=== PATIENT | male | born 1980 | race Caucasian/White ===

== ENCOUNTER → 2021-07-15 | Outpatient (CLI) | payer OTHER ==
[2021-07-15 11:56] LABS: URINE WBC 0 /hpf (0-3)
[2021-07-15 12:01] LABS: BASO # 0.04 K/mm3 (0.02-0.10); EOS # 0.05 K/mm3 (0.04-0.40); EOS % 0.8 % (0.0-4.0); HEMATOCRIT 49.1 % (42.0-52.0); HEMOGLOBIN 16.7 g/dL (13.5-18.0); LYMPH# 1.71 K/mm3 (1.50-4.00); MEAN CELL VOLUME 90 fl (78-100); MEAN CORPUSCULAR HEMOGLOBIN 31 pg (27-31); MEAN CORPUSCULAR HGB CONC 34 g/dL (33-37); MEAN PLATELET VOLUME 9.7 fl (7.4-10.4); MONO # 0.75 K/mm3 (0.20-0.80); NEU # 3.43 K/mm3 (1.40-6.50); PLATELET COUNT 254 K/mm3 (130-400); RED BLOOD COUNT 5.43 M/mm3 (4.20-5.60); RED CELL DISTRIBUTION WIDTH 12.7 % (11.5-14.5)
[2021-07-15 12:10] LABS: ALBUMIN 4.7 g/dL (3.5-5.0)
[2021-07-15 12:11] LABS: CALCIUM 10.1 mg/dL (8.3-10.5)
[2021-07-15 12:13] LABS: TOTAL PROTEIN 7.8 g/dL (6.4-8.3)
[2021-07-15 12:14] LABS: TOTAL BILIRUBIN 10.7 mg/dL (0.2-1.2)
[2021-07-15 12:28] LABS: PH-URINE 5.5 (5.0 - 8.0); URINE APPEARANCE CLEAR; URINE BILIRUBIN 2+ (NEGATIVE); URINE BLOOD NEGATIVE (NEGATIVE); URINE COLOR YELLOW; URINE GLUCOSE NEGATIVE (NEGATIVE); URINE KETONE 2+ (NEGATIVE); URINE LEUKOCYTE ESTERASE NEGATIVE (NEGATIVE); URINE MUCUS PRESENT (NOT PRESENT); URINE NITRATE NEGATIVE (NEGATIVE); URINE PROTEIN(semi-quant) NEGATIVE (NEGATIVE); URINE UROBILINOGEN NORMAL (NORMAL)
[2021-07-15 13:48] LABS: DIRECT BILIRUBIN 6.5 mg/dL (0.0-0.5)
== END ==
LOC: LAB 11:37 → RAD 11:37
PROVIDERS: Family Medicine
DX: K81.9 Cholecystitis, unspecified (principal); K83.8 Other specified diseases of biliary tract